=== PATIENT | female | born 1950 | race Caucasian/White ===

== ENCOUNTER → 2021-01-13 05:11 | Outpatient (CLI) | payer MEDICARE, MEDICAID, SELFPAY ==
[2021-01-14 01:26] LABS: SARS-CoV-2 RNA PCR Positive
== END ==
PROVIDERS: PCP Family Medicine; Visit Provider Family Medicine
DX: U07.1 COVID-19 (principal)
CPT/HCPCS: C9803; U0003; U0005

== ENCOUNTER 2021-01-15 10:31 | Outpatient (RCR) | payer MEDICARE, MEDICAID, SELFPAY ==
[2021-01-15] MEDS: diphenhydrAMINE HCl CAP 25 MG CAPSULE PO (12:00)
[2021-01-15] MEDS: ACETAMINOPHEN 325 MG TABLET 650 MG PO (12:00)
[2021-01-15] MEDS: FAMOTIDINE 20 MG TABLET PO (12:00)
[2021-01-15 12:08] VITALS: BP 142/64; PULSE 62; RESP 20; TEMP 36.3; O2SAT 98
[2021-01-15 13:57] VITALS: BP 121/55
== END 2021-01-15 16:30 | disposition home or self-care (01) ==
LOC: AMCINF 10:31
PROVIDERS: PCP Family Medicine; Referring Provider Family Medicine; Visit Provider Internal Medicine Hematology & Oncology
DX: Z23 Encounter for immunization (principal); U07.1 COVID-19; I10 Essential (primary) hypertension; E11.9 Type 2 diabetes mellitus without complications
CPT/HCPCS: A9270; J7050; M0243; Q0244